=== PATIENT | male | born 1965 | race Caucasian/White ===

== ENCOUNTER 2021-04-07 06:57 | Emergency (ER) | payer SELFPAY ==
[~2021-04-07] VITALS: Ht 195.6 cm; Wt 111.1 kg
[2021-04-07 07:42] LABS: AMPHETAMINES NEGATIVE (NEGATIVE); BARBITURATES NEGATIVE (NEGATIVE); ECSTASY (MDMA) NEGATIVE (NEGATIVE); MARIJUANA (THC) NEGATIVE (NEGATIVE); METHADONE NEGATIVE (NEGATIVE); OPIATES NEGATIVE (NEGATIVE); OXYCODONE NEGATIVE (NEGATIVE)
[2021-04-07 07:52] LABS: BASOPHIL 0.7 % (0-2); EOSINOPHIL 2.3 % (0-5); HCT 41.1 % (42.0-52.0); HGB 13.8 g/dl (13.2-18.0); LYMPHOCYTE 21.4 % (15-48); MCH 31.3 pg (25.0-31.0); MCHC 33.6 g/dL (32.0-36.0); MCV 93.2 fL (78.0-100.0); MONOCYTE 10.8 % (0-12); NEUTROPHIL 64.4 % (41-80); NRBC 0; PLT 251 K/uL (150-400); RBC 4.41 M/uL (4.70-6.00); RDW 12.3 % (11.5-14.0); WBC 5.7 K/uL (4.0-10.5)
[2021-04-07 08:03] LABS: INR 1.01 (0.9-1.2); PROTHROMBIN TIME 12.7 SECONDS (11.8-13.4); PTT 28.7 SECONDS (24.4-34.7)
[2021-04-07 08:04] LABS: D-DIMER 0.48 ug/mLFEU (0.00-0.41)
[2021-04-07 08:19] LABS: ALBUMIN 3.9 g/dL (3.4-5.0); BILIRUBIN - TOTAL 0.6 mg/dL (0.2-1.0); BUN/CREAT RATIO (CALC) 20.2 RATIO; CREATININE 0.84 mg/dL (0.67-1.17); FT4 (FREE T4) 0.8 ng/dL (0.76-1.46); GLOBULIN (CALCULATION) 3.7 g/dL; MAGNESIUM 2.3 mg/dL (1.8-2.4); POTASSIUM 4.1 mmol/L (3.5-5.1); TOTAL PROTEIN 7.6 g/dL (6.4-8.2)
[2021-04-07] MEDS ORDERED: ASPIRIN EC81 MG PO (08:34)
[2021-04-07] MEDS ORDERED: TOPROL XL 25MG25 MG PO (08:34)
== END 2021-04-07 08:45 | disposition home or self-care (01) ==
LOC: FER 06:57
PROVIDERS: Emergency Medicine Emergency Medical Services
DX: I48.91 Unspecified atrial fibrillation (principal); Z88.6 Allergy status to analgesic agent; Z88.1 Allergy status to other antibiotic agents
CPT/HCPCS: 36415; 71045; 80053; 80305; 83735; 84439; 84443; 84484; 85025; 85379; 85610; 85730; 93005